=== PATIENT | female | born 1955 | race Hispanic/Latino ===

== ENCOUNTER → 2022-08-04 | Outpatient (REF) | payer OTHER | LOC: M LAB REF 12:38 | PROVIDERS: ATTEND Nurse Practitioner Family | DX: R30.0 Dysuria (principal) ==

== ENCOUNTER → 2022-08-05 | Outpatient (REF) | payer OTHER ==
[2022-08-05 17:23] LABS: BASO # 0.1 10^3/uL (0.0-0.2); EOS # 0.2 10^3/uL (0.0-0.5); EOS % 2.3 % (0.0-3.0); HEMATOCRIT 46.7 % (36.0-47.0); HEMOGLOBIN 14.8 g/dl (12.0-15.5); LYMPH # 2.2 10^3/uL (1.5-5.0); LYMPH % 27.9 % (24.0-44.0); MEAN CORPUSCULAR HEMOGLOBIN 30.7 pg (27.0-33.0); MEAN CORPUSCULAR HGB CONC 31.7 g/dl (32.0-36.5); MEAN CORPUSCULAR VOLUME 96.9 fl (80.0-96.0); MONO # 0.6 10^3/uL (0.0-0.8); MONO % 7.8 % (2.0-8.0); NEUTROPHILS # 4.7 10^3/uL (1.5-8.5); NEUTROPHILS % 60.9 % (36.0-66.0); PLATELET COUNT, AUTOMATED 272 10^3/uL (150-450); RED BLOOD COUNT 4.82 10^6/uL (4.00-5.40); WHITE BLOOD COUNT 7.7 10^3/uL (4.0-10.0)
[2022-08-05 17:51] LABS: ALKALINE PHOSPHATASE 118 U/L (46-116); ALT/SGPT 57 U/L (7.0-40); AST/SGOT 33 U/L (<34); BILIRUBIN,TOTAL 0.5 MG/DL (0.3-1.2); BLOOD UREA NITROGEN 17 MG/DL (9-23); CALCIUM LEVEL 9.6 MG/DL (8.3-10.6); CARBON DIOXIDE LEVEL 28 MMOL/L (20-31); CHLORIDE LEVEL 104 MMOL/L (98-107); CHOLESTEROL LEVEL 185 MG/DL (<200); CREATININE FOR GFR 0.82 MG/DL (0.55-1.30); GLOMERULAR FILTRATION RATE > 60.0 (>45); GLUCOSE, FASTING 155 MG/DL (74-106); LDL CHOLESTEROL 87.8 MG/DL (<100); NON-HDL-C 114 MG/DL; POTASSIUM SERUM 4.5 MMOL/L (3.5-5.1); SODIUM LEVEL 140 MMOL/L (136-145); TOTAL PROTEIN 7.4 G/DL (5.7-8.2); TRIGLYCERIDES LEVEL 131 MG/DL (<150)
[2022-08-05 17:52] LABS: THYROID STIMULATING HORMONE 1.556 uIU/ML (0.55-4.78)
[2022-08-05 18:36] LABS: HEMOGLOBIN A1c 7.7 % (4.0-6.0)
== END ==
LOC: M LAB REF 16:14
PROVIDERS: ATTEND Nurse Practitioner Family
DX: E11.9 Type 2 diabetes mellitus without complications (principal); E55.9 Vitamin D deficiency, unspecified; K59.09 Other constipation

== ENCOUNTER → 2022-08-14 | Outpatient (CLI) | payer OTHER | LOC: M RAD 12:00 | PROVIDERS: ATTEND Nurse Practitioner Family | DX: K59.09 Other constipation (principal) ==

== ENCOUNTER → 2022-09-16 | Outpatient (CLI) | payer MEDICARE, OTHER ==
[~2022-09-16] MED LIST: E-Z-GAS II EFFERVESCENT PACKET (SODIUM BICARB./CITRIC ACID/SIMETHICONE) As Ordered ONE; E-Z-HD 98% w/w 340GM SUSP BTL As Ordered ONE; E-Z-PAQUE 96% w/w SUSP 176GM BTL As Ordered ONE
== END ==
LOC: M RAD 09:00
PROVIDERS: ATTEND Nurse Practitioner Family
DX: R13.10 Dysphagia, unspecified (principal); K21.9 Gastro-esophageal reflux disease without esophagitis; R93.3 Abnormal findings on diagnostic imaging of other parts of digestive tract

== ENCOUNTER → 2022-09-25 | Outpatient (CLI) | payer MEDICARE | LOC: M RAD 10:08 | PROVIDERS: ATTEND Nurse Practitioner Family | DX: R61 Generalized hyperhidrosis (principal) ==

== ENCOUNTER → 2022-10-27 | Outpatient (REF) | payer MEDICARE, MEDICAID ==
[~2022-10-27] MED LIST changes: +AMLO1TAB24; -E-Z-GAS II EFFERVESCENT PACKET (SODIUM BICARB./CITRIC ACID/SIMETHICONE) As Ordered ONE; -E-Z-HD 98% w/w 340GM SUSP BTL As Ordered ONE; -E-Z-PAQUE 96% w/w SUSP 176GM BTL As Ordered ONE; +FAMO20TA5; +METF-838; +SIMV20TA22
[2022-10-27 13:40] LABS: APPEARANCE, URINE HAZY (CLEAR); BACTERIA, URINE AUTO 1+ (NEGATIVE); BILIRUBIN, URINE AUTO NEGATIVE (NEGATIVE); BLOOD, URINE BLOOD 1+ (NEGATIVE); CALCIUM OXALATE CRYSTALS LARGE; COLOR, URINE YELLOW (YELLOW); GLUCOSE, URINE (UA) AUTO 1+ mg/dL (NEGATIVE); KETONE, URINE AUTO NEGATIVE (NEGATIVE); LEUKOCYTE ESTERASE, URINE AUTO NEGATIVE (NEGATIVE); MUCUS, URINE SMALL (NEGATIVE); NITRITE, URINE AUTO NEGATIVE (NEGATIVE); PROTEIN, URINE AUTO NEGATIVE (NEGATIVE); RBC, URINE AUTO 2 /HPF (0-3); SPECIFIC GRAVITY URINE AUTO 1.018 (1.002-1.035); SQUAMOUS EPITHELIAL CELL UR AU 1 /HPF (0-6); UROBILINOGEN, URINE AUTO 0.2 mg/dL (0.0-2.0); WBC, URINE AUTO 1 /HPF (0-3)
== END ==
LOC: M SMT 12:54
PROVIDERS: ATTEND Physician Assistant
DX: Z01.818 Encounter for other preprocedural examination (principal); R30.0 Dysuria

== ENCOUNTER → 2022-10-31 | Outpatient (CLI) | payer MEDICARE, MEDICAID ==
[2022-10-31 12:19] LABS: BASO # 0.1 10^3/uL (0.0-0.2); BASO % 1.1 % (0.0-1.0); EOS # 0.2 10^3/uL (0.0-0.5); EOS % 2.4 % (0.0-3.0); HEMATOCRIT 44.1 % (36.0-47.0); HEMOGLOBIN 14.2 g/dl (12.0-15.5); LYMPH # 2.2 10^3/uL (1.5-5.0); LYMPH % 26.9 % (24.0-44.0); MEAN CORPUSCULAR HEMOGLOBIN 30.7 pg (27.0-33.0); MEAN CORPUSCULAR HGB CONC 32.2 g/dl (32.0-36.5); MEAN CORPUSCULAR VOLUME 95.5 fl (80.0-96.0); MONO # 0.6 10^3/uL (0.0-0.8); MONO % 6.7 % (2.0-8.0); NEUTROPHILS # 5.1 10^3/uL (1.5-8.5); NEUTROPHILS % 62.5 % (36.0-66.0); PLATELET COUNT, AUTOMATED 265 10^3/uL (150-450); RED BLOOD COUNT 4.62 10^6/uL (4.00-5.40); WHITE BLOOD COUNT 8.2 10^3/uL (4.0-10.0)
[2022-10-31 12:44] LABS: BLOOD UREA NITROGEN 15 MG/DL (9-23); CALCIUM LEVEL 10.1 MG/DL (8.3-10.6); CARBON DIOXIDE LEVEL 28 MMOL/L (20-31); CHLORIDE LEVEL 104 MMOL/L (98-107); CREATININE FOR GFR 0.77 MG/DL (0.55-1.30); GLOMERULAR FILTRATION RATE > 60.0 (>45); GLUCOSE, FASTING 114 MG/DL (74-106); SODIUM LEVEL 140 MMOL/L (136-145)
== END ==
LOC: M EKG 10:27
PROVIDERS: ATTEND Physician Assistant
DX: Z01.818 Encounter for other preprocedural examination (principal)

== ENCOUNTER 2022-11-06 06:01 | Day surgery (SDC) | payer MEDICARE, MEDICAID ==
[~2022-11-06] VITALS: Ht 162.6 cm; Wt 72.6 kg
[2022-11-06] MEDS ORDERED: MIDAZOLAM INJ 2MG/2ML VIAL As Ordered ONE (07:46)
[2022-11-06] MEDS ORDERED: LIDOCAINE 2% 100MG/5ML SDV (FOR ANES.) As Ordered ONE (07:46)
[2022-11-06] MEDS ORDERED: propofoL 200 MG/20 ML VIAL As Ordered ONE (07:46)
[2022-11-06] MEDS ORDERED: ONDANSETRON 4MG 2ML VIAL As Ordered ONE (07:46)
[2022-11-06] MEDS ORDERED: propofoL 500 MG/50 ML VIAL As Ordered ONE (07:46)
[2022-11-06] MEDS ORDERED: fentaNYL 100 MCG/2 ML INJECTION As Ordered ONE (07:46)
[2022-11-06] MEDS ORDERED: LR 1,000 ML IV SCH (07:50)
[2022-11-06] MEDS ORDERED: LevoFLOXacin IV 500 MG in IV 1 EA IV ONE (07:50)
[2022-11-06] MEDS ORDERED: ACETAMINOPHEN 1000MG 100ML IV BAG As Ordered ONE (08:16)
[2022-11-06] MEDS ORDERED: FLOM0.4C39 PO (08:26)
[2022-11-06] MEDS ORDERED: OXYC1TAB23 PO (08:26)
[2022-11-06 09:16] VITALS: BP 137/67
[2022-11-07] MEDS ORDERED: UNRESOLVED CLARIFICATION ENTRY XX SCH (00:01)
== END 2022-11-06 09:30 | disposition home or self-care (01) ==
LOC: M SDC 06:01
PROVIDERS: ATTEND Urology
DX: N20.0 Calculus of kidney (principal); E11.9 Type 2 diabetes mellitus without complications; K21.9 Gastro-esophageal reflux disease without esophagitis; G47.33 Obstructive sleep apnea (adult) (pediatric); Z79.84 Long term (current) use of oral hypoglycemic drugs; Z79.899 Other long term (current) drug therapy; F41.9 Anxiety disorder, unspecified; Z88.0 Allergy status to penicillin
CPT/HCPCS: 50590; 74018; J0131; J1956; J2250; J2405; J3010

== ENCOUNTER → 2022-11-17 | Outpatient (CLI) | payer MEDICARE, MEDICAID ==
[~2022-11-17] MED LIST changes: +FLOM0.4C39 PO; +OXYC1TAB23 PO
== END ==
LOC: M CARPUL 14:27
PROVIDERS: ATTEND Nurse Practitioner Family
DX: R01.1 Cardiac murmur, unspecified (principal)

== ENCOUNTER → 2022-11-24 | Outpatient (CLI) | payer MEDICARE, MEDICAID | LOC: M RAD 10:46 | PROVIDERS: ATTEND Urology | DX: N20.0 Calculus of kidney (principal) ==

== ENCOUNTER → 2022-11-28 | Outpatient (REF) | payer MEDICARE, MEDICAID ==
[2022-11-28 17:33] LABS: APPEARANCE, URINE CLEAR (CLEAR); BACTERIA, URINE AUTO NEGATIVE (NEGATIVE); BILIRUBIN, URINE AUTO NEGATIVE (NEGATIVE); BLOOD, URINE BLOOD 1+ (NEGATIVE); COLOR, URINE STRAW (YELLOW); GLUCOSE, URINE (UA) AUTO NEGATIVE (NEGATIVE); KETONE, URINE AUTO NEGATIVE (NEGATIVE); LEUKOCYTE ESTERASE, URINE AUTO NEGATIVE (NEGATIVE); MUCUS, URINE SMALL (NEGATIVE); NITRITE, URINE AUTO NEGATIVE (NEGATIVE); PROTEIN, URINE AUTO NEGATIVE (NEGATIVE); RBC, URINE AUTO 3 /HPF (0-3); SPECIFIC GRAVITY URINE AUTO 1.014 (1.002-1.035); SQUAMOUS EPITHELIAL CELL UR AU 2 /HPF (0-6); UROBILINOGEN, URINE AUTO 0.2 mg/dL (0.0-2.0); WBC, URINE AUTO 1 /HPF (0-3)
== END ==
LOC: M SMT 16:40
PROVIDERS: ATTEND Physician Assistant
DX: Z48.816 Encounter for surgical aftercare following surgery on the genitourinary system (principal); R30.0 Dysuria

== ENCOUNTER → 2022-12-25 | Outpatient (REF) | payer MEDICARE, MEDICAID ==
[2022-12-25 18:03] LABS: C REACTIVE PROTEIN QUANTITATIV < 0.40 MG/DL (<1.0)
[2022-12-25 18:06] LABS: RHEUMATOID FACTOR QUANT < 3.5 IU/ML (<14)
[2022-12-25 18:16] LABS: CREATININE, URINE 122.1 MG/DL; MAU/CREAT RATIO 8.1 MCG/MG (0.0-30.0)
== END ==
LOC: M LAB REF 16:11
PROVIDERS: ATTEND Nurse Practitioner Family
DX: E11.9 Type 2 diabetes mellitus without complications (principal); M25.50 Pain in unspecified joint

== ENCOUNTER → 2023-01-30 | Outpatient (CLI) | payer MEDICARE, MEDICAID | LOC: M RAD 13:35 | PROVIDERS: ATTEND Nurse Practitioner Family | DX: M51.37 Other intervertebral disc degeneration, lumbosacral region (principal); M16.11 Unilateral primary osteoarthritis, right hip ==

== ENCOUNTER → 2023-04-17 | Outpatient (REF) | payer MEDICARE, MEDICAID ==
[2023-04-17 16:06] LABS: APPEARANCE, URINE HAZY (CLEAR); BACTERIA, URINE AUTO 1+ (NEGATIVE); BILIRUBIN, URINE AUTO NEGATIVE (NEGATIVE); BLOOD, URINE BLOOD 1+ (NEGATIVE); CALCIUM OXALATE CRYSTALS SMALL; COLOR, URINE YELLOW (YELLOW); GLUCOSE, URINE (UA) AUTO 1+ mg/dL (NEGATIVE); KETONE, URINE AUTO NEGATIVE (NEGATIVE); LEUKOCYTE ESTERASE, URINE AUTO TRACE (NEGATIVE); MUCUS, URINE SMALL (NEGATIVE); NITRITE, URINE AUTO NEGATIVE (NEGATIVE); PROTEIN, URINE AUTO NEGATIVE (NEGATIVE); RBC, URINE AUTO 1 /HPF (0-3); SPECIFIC GRAVITY URINE AUTO 1.024 (1.002-1.035); SQUAMOUS EPITHELIAL CELL UR AU 4 /HPF (0-6); UROBILINOGEN, URINE AUTO 0.2 mg/dL (0.0-2.0); WBC, URINE AUTO 2 /HPF (0-3)
== END ==
LOC: M SMT 15:33
PROVIDERS: ATTEND Physician Assistant
DX: N23 Unspecified renal colic (principal)

== ENCOUNTER → 2023-05-18 | Outpatient (CLI) | payer MEDICARE, MEDICAID | LOC: M PLAIMG 13:33 | PROVIDERS: ATTEND Physician Assistant | DX: N20.0 Calculus of kidney (principal); N28.1 Cyst of kidney, acquired; Z90.49 Acquired absence of other specified parts of digestive tract; Z90.710 Acquired absence of both cervix and uterus ==

== ENCOUNTER → 2023-05-20 | Outpatient (CLI) | payer MEDICARE, MEDICAID ==
[~2023-05-20] MED LIST changes: -AMLO1TAB24; +AMLO1TAB24 PO; -FAMO20TA5; +FAMO20TA5 PO; +FLUT50SP17 NARES; +LEVO50TA5 PO; +LOSA50TA28 PO; -METF-838; +METF-838 PO; -SIMV20TA22; +SIMV20TA22 PO
== END ==
LOC: M RAD 14:06
PROVIDERS: ATTEND Physician Assistant
DX: R30.0 Dysuria (principal)

== ENCOUNTER → 2023-06-02 | Outpatient (REF) | payer MEDICARE ==
[2023-06-02 19:10] LABS: AMORPHOUS SEDIMENT SMALL (NEGATIVE); APPEARANCE, URINE TURBID (CLEAR); BACTERIA, URINE AUTO 2+ (NEGATIVE); BILIRUBIN, URINE AUTO NEGATIVE (NEGATIVE); BLOOD, URINE BLOOD 1+ (NEGATIVE); CALCIUM OXALATE CRYSTALS LARGE; COLOR, URINE YELLOW (YELLOW); GLUCOSE, URINE (UA) AUTO NEGATIVE (NEGATIVE); KETONE, URINE AUTO NEGATIVE (NEGATIVE); LEUKOCYTE ESTERASE, URINE AUTO NEGATIVE (NEGATIVE); MUCUS, URINE MODERATE (NEGATIVE); NITRITE, URINE AUTO NEGATIVE (NEGATIVE); PROTEIN, URINE AUTO NEGATIVE (NEGATIVE); RBC, URINE AUTO 2 /HPF (0-3); SPECIFIC GRAVITY URINE AUTO 1.024 (1.002-1.035); SQUAMOUS EPITHELIAL CELL UR AU 6 /HPF (0-6); UROBILINOGEN, URINE AUTO 0.2 mg/dL (0.0-2.0); WBC, URINE AUTO 6 /HPF (0-3)
== END ==
LOC: M SMT 17:24
PROVIDERS: ATTEND Physician Assistant
DX: R30.0 Dysuria (principal)

== ENCOUNTER → 2023-06-04 | Day surgery (SDC) | payer MEDICARE, MEDICAID ==
[~2023-06-04] VITALS: Ht 162.6 cm; Wt 68.1 kg
[~2023-06-04] MED LIST changes: +LIDOCAINE 2% 100MG/5ML SDV (FOR ANES.) As Ordered ONE; +NS 1,000 ML IV ONE; +propofoL 200 MG/20 ML VIAL As Ordered ONE
[2023-06-04 14:01] VITALS: BP 141/70; TEMP 97; O2SAT 97
== END | disposition home or self-care (01) ==
LOC: M OPP 11:16
PROVIDERS: ATTEND Internal Medicine Gastroenterology
DX: R13.14 Dysphagia, pharyngoesophageal phase (principal); K31.9 Disease of stomach and duodenum, unspecified; K21.9 Gastro-esophageal reflux disease without esophagitis; I10 Essential (primary) hypertension; E11.9 Type 2 diabetes mellitus without complications; E03.9 Hypothyroidism, unspecified; G47.30 Sleep apnea, unspecified; Z79.899 Other long term (current) drug therapy; Z88.0 Allergy status to penicillin; Z87.890 Personal history of sex reassignment

== ENCOUNTER → 2023-08-07 | Outpatient (REF) | payer MEDICARE, MEDICAID ==
[~2023-08-07] MED LIST changes: -FLUT50SP17 NARES; +FLUTISP NARES; -LIDOCAINE 2% 100MG/5ML SDV (FOR ANES.) As Ordered ONE; -NS 1,000 ML IV ONE; -propofoL 200 MG/20 ML VIAL As Ordered ONE
[2023-08-07 13:46] LABS: HEMOGLOBIN A1c 6.8 % (4.0-6.0)
[2023-08-07 13:59] LABS: THYROID STIMULATING HORMONE 1.969 uIU/ML (0.55-4.78)
[2023-08-07 14:00] LABS: BILIRUBIN,TOTAL 0.5 MG/DL (0.3-1.2); CALCIUM LEVEL 9.9 MG/DL (8.3-10.6); CHOLESTEROL RISK RATIO 3.05 (<5); CREATININE FOR GFR 1.01 MG/DL (0.55-1.30); GLOMERULAR FILTRATION RATE 57.7 (>39); HDL CHOLESTEROL 67.8 MG/DL (>40); LDL CHOLESTEROL 99.4 MG/DL (<100); NON-HDL-C 139.2 MG/DL; POTASSIUM SERUM 4.1 MMOL/L (3.5-5.1); TOTAL PROTEIN 6.9 G/DL (5.7-8.2)
== END ==
LOC: M LAB REF 12:16
PROVIDERS: ATTEND Nurse Practitioner Family
DX: E11.9 Type 2 diabetes mellitus without complications (principal); E03.9 Hypothyroidism, unspecified

== ENCOUNTER 2023-10-29 12:56 | Outpatient (RCR) | payer MEDICARE, MEDICAID | END 2023-11-03 | LOC: M PT 12:56 | PROVIDERS: ATTEND Nurse Practitioner Family | DX: M51.36 Other intervertebral disc degeneration, lumbar region (principal); M16.9 Osteoarthritis of hip, unspecified ==

== ENCOUNTER → 2023-10-30 | Outpatient (REF) | payer MEDICARE, MEDICAID ==
[2023-10-30 18:04] LABS: APPEARANCE, URINE HAZY (CLEAR); BACTERIA, URINE AUTO NEGATIVE (NEGATIVE); BILIRUBIN, URINE AUTO NEGATIVE (NEGATIVE); BLOOD, URINE BLOOD 1+ (NEGATIVE); COLOR, URINE YELLOW (YELLOW); GLUCOSE, URINE (UA) AUTO NEGATIVE (NEGATIVE); KETONE, URINE AUTO NEGATIVE (NEGATIVE); LEUKOCYTE ESTERASE, URINE AUTO NEGATIVE (NEGATIVE); MUCUS, URINE SMALL (NEGATIVE); NITRITE, URINE AUTO NEGATIVE (NEGATIVE); PROTEIN, URINE AUTO NEGATIVE (NEGATIVE); RBC, URINE AUTO 1 /HPF (0-3); SPECIFIC GRAVITY URINE AUTO 1.017 (1.002-1.035); SQUAMOUS EPITHELIAL CELL UR AU 8 /HPF (0-6); UROBILINOGEN, URINE AUTO 0.2 mg/dL (0.0-2.0); WBC, URINE AUTO 1 /HPF (0-3)
== END ==
LOC: M SMT 17:01
PROVIDERS: ATTEND Physician Assistant
DX: R30.0 Dysuria (principal)

== ENCOUNTER → 2023-11-16 | Outpatient (CLI) | payer MEDICARE, MEDICAID | LOC: M SOG 07:52 | PROVIDERS: ATTEND Physician Assistant | DX: M25.561 Pain in right knee (principal); M17.11 Unilateral primary osteoarthritis, right knee ==

== ENCOUNTER 2023-11-20 12:33 | Outpatient (RCR) | payer MEDICARE, MEDICAID | END 2023-12-04 | LOC: M PT 12:33 | PROVIDERS: ATTEND Nurse Practitioner Family | DX: M51.36 Other intervertebral disc degeneration, lumbar region (principal); M16.11 Unilateral primary osteoarthritis, right hip ==

== ENCOUNTER → 2024-02-15 | Outpatient (CLI) | payer MEDICARE, MEDICAID | LOC: M RAD 13:11 | PROVIDERS: ATTEND Physician Assistant | DX: N20.0 Calculus of kidney (principal); R10.31 Right lower quadrant pain ==

== ENCOUNTER → 2024-02-22 | Outpatient (CLI) | payer MEDICARE, MEDICAID ==
[~2024-02-22] MED LIST changes: +LIDOCAINE 1% MDV 20ML VIAL As Ordered ONE
[2024-02-22 11:43] VITALS: BP 177/80; TEMP 96.6; O2SAT 98
== END ==
LOC: M IRPRO 11:36
PROVIDERS: ATTEND Otolaryngology
DX: E04.1 Nontoxic single thyroid nodule (principal)

== ENCOUNTER → 2024-03-01 | Outpatient (REF) | payer MEDICARE, MEDICAID ==
[~2024-03-01] MED LIST changes: -LIDOCAINE 1% MDV 20ML VIAL As Ordered ONE
[2024-03-01 16:56] LABS: CREATININE, URINE 191.6 MG/DL; MAU/CREAT RATIO 4.6 MCG/MG (0.0-30.0)
== END ==
LOC: M LAB REF 16:09
PROVIDERS: ATTEND Nurse Practitioner Family
DX: E11.9 Type 2 diabetes mellitus without complications (principal)

== ENCOUNTER → 2024-04-06 | Outpatient (CLI) | payer MEDICARE, MEDICAID | LOC: M WHC 09:32 | PROVIDERS: ATTEND Nurse Practitioner Family | DX: Z12.31 Encounter for screening mammogram for malignant neoplasm of breast (principal); R92.8 Other abnormal and inconclusive findings on diagnostic imaging of breast ==

== ENCOUNTER → 2024-04-14 | Outpatient (REF) | payer MEDICARE, MEDICAID ==
[2024-04-14 18:54] LABS: CHOLESTEROL RISK RATIO 2.45 (<5); HDL CHOLESTEROL 67.6 MG/DL (>40); NON-HDL-C 98.4 MG/DL
[2024-04-14 18:56] LABS: THYROID STIMULATING HORMONE 1.212 uIU/ML (0.55-4.78)
== END ==
LOC: M LAB REF 16:22
PROVIDERS: ATTEND Nurse Practitioner Family
DX: E11.9 Type 2 diabetes mellitus without complications (principal); E03.9 Hypothyroidism, unspecified

== ENCOUNTER → 2024-04-19 | Outpatient (CLI) | payer MEDICARE, MEDICAID | LOC: M WHC 07:39 | PROVIDERS: ATTEND Nurse Practitioner Family | DX: R92.8 Other abnormal and inconclusive findings on diagnostic imaging of breast (principal); R92.1 Mammographic calcification found on diagnostic imaging of breast; N63.21 Unspecified lump in the left breast, upper outer quadrant | CPT/HCPCS: 76642; 77065; G0279 ==

== ENCOUNTER → 2024-05-03 | Outpatient (CLI) | payer MEDICARE, MEDICAID ==
[~2024-05-03] MED LIST changes: +PROHANCE 279.3MG/ML 15ML VIAL ONE
== END ==
LOC: M PLAIMG 13:27
PROVIDERS: ATTEND Physician Assistant
DX: H90.3 Sensorineural hearing loss, bilateral (principal); R90.82 White matter disease, unspecified
CPT/HCPCS: 70553; A9576

== ENCOUNTER → 2024-05-26 | Outpatient (REF) | payer MEDICARE, MEDICAID ==
[~2024-05-26] MED LIST changes: -PROHANCE 279.3MG/ML 15ML VIAL ONE
[2024-05-26 14:58] LABS: MAGNESIUM LEVEL 1.9 MG/DL (1.8-2.4)
[2024-05-26 15:00] LABS: PERCENT SATURATION 15.7 % (13.2-45.0)
[2024-05-26 15:02] LABS: FERRITIN 42.9 NG/ML (7.3-270.7); THYROID STIMULATING HORMONE 1.287 uIU/ML (0.55-4.78)
== END ==
LOC: M LAB REF 13:02
PROVIDERS: ATTEND Nurse Practitioner Family
DX: E03.9 Hypothyroidism, unspecified (principal); R25.2 Cramp and spasm

== ENCOUNTER → 2024-09-06 | Outpatient (REF) | payer MEDICARE, MEDICAID | LOC: M LAB REF 12:18 | PROVIDERS: ATTEND Nurse Practitioner Family | DX: R30.0 Dysuria (principal) ==

== ENCOUNTER → 2024-09-06 | Outpatient (CLI) | payer MEDICARE, MEDICAID | LOC: M RAD 13:26 | PROVIDERS: ATTEND Physician Assistant | DX: E04.1 Nontoxic single thyroid nodule (principal); R30.0 Dysuria ==

== ENCOUNTER → 2024-09-07 | Outpatient (REF) | payer MEDICARE, MEDICAID ==
[2024-09-07 15:07] LABS: HEMATOCRIT 41.9 % (36.0-47.0); HEMOGLOBIN 13.3 g/dl (12.0-15.5); MEAN CORPUSCULAR HEMOGLOBIN 30.6 pg (27.0-33.0); MEAN CORPUSCULAR HGB CONC 31.7 g/dl (32.0-36.5); MEAN CORPUSCULAR VOLUME 96.5 fl (80.0-96.0); PLATELET COUNT, AUTOMATED 267 10^3/uL (150-450); RED BLOOD COUNT 4.34 10^6/uL (4.00-5.40); WHITE BLOOD COUNT 6.5 10^3/uL (4.0-10.0)
[2024-09-07 15:35] LABS: BLOOD UREA NITROGEN 9 MG/DL (9-23); CALCIUM LEVEL 9.4 MG/DL (8.3-10.6); CARBON DIOXIDE LEVEL 28 MMOL/L (20-31); CHLORIDE LEVEL 106 MMOL/L (98-107); CREATININE FOR GFR 0.78 MG/DL (0.55-1.30); GLOMERULAR FILTRATION RATE > 60.0 (>39); GLUCOSE, FASTING 134 MG/DL (74-106); SODIUM LEVEL 141 MMOL/L (136-145)
[2024-09-07 15:38] LABS: THYROID STIMULATING HORMONE 0.885 uIU/ML (0.55-4.78)
== END ==
LOC: M LAB REF 14:31
PROVIDERS: ATTEND Nurse Practitioner Family
DX: E11.9 Type 2 diabetes mellitus without complications (principal); E03.9 Hypothyroidism, unspecified